=== PATIENT | male | born 1980 | race Caucasian/White ===

== ENCOUNTER 2018-11-04 12:18 | Emergency (ER) | payer SELFPAY ==
[~2018-11-04] VITALS: Ht 172.7 cm; Wt 97.7 kg
[2018-11-04] MEDS ORDERED: PAIN MED PO (12:20)
[2018-11-04 12:34] LABS: GLUCOSE,POINT OF CARE 310 MG/DL (70-110)
[2018-11-04] MEDS ORDERED: SODIUM CHLORIDE 0.9% 1,000 ML IV ONE (14:00)
[2018-11-04 16:06] VITALS: BP 123/76
[2018-11-04 16:09] LABS: GLUCOSE,POINT OF CARE 290 MG/DL (70-110)
== END 2018-11-04 16:16 | disposition home or self-care (01) ==
LOC: EMS 12:20
DX: S39.011A Strain of muscle, fascia and tendon of abdomen, initial encounter (principal); X50.9XXA Other and unspecified overexertion or strenuous movements or postures, initial encounter; Y93.89 Activity, other specified; Y92.89 Other specified places as the place of occurrence of the external cause; Y99.8 Other external cause status
CPT/HCPCS: 73503; 82962; 99283; J7030

== ENCOUNTER 2019-03-08 17:28 | Inpatient (IN) | payer MEDICAID ==
[~2019-03-08] VITALS: Ht 172.7 cm; Wt 95.0 kg
[~2019-03-08 17:28] MED LIST: PAIN MED PO
[2019-03-08] MEDS ORDERED: SODIUM CHLORIDE 0.9% 100 ML ONE (17:50)
[2019-03-08] MEDS ORDERED: IOVERSOL 350 MG/ML 100 ML VIAL ONE (17:50)
[2019-03-08 18:11] LABS: BASOPHILS % (AUTO) 1.3 % (0.0-2.0); EOSINOPHILS % (AUTO) 5.1 % (1.0-6.0); HEMATOCRIT 44.3 % (41-53); HEMOGLOBIN 15.1 g/dL (13.5-17.5); LYMPHOCYTES # (AUTO) 3.5 K/uL (1.0-4.8); MEAN CORPUSCULAR HEMOGLOBIN 29.4 pg (26.0-34.0); MEAN CORPUSCULAR HGB CONC 34.2 G/dL (31.0-37.0); MEAN CORPUSCULAR VOLUME 86 fL (80-100); MONOCYTES # (AUTO) 0.7 K/uL (0.1-1.0); NEUTROPHILS # (AUTO) 4.3 K/uL (1.8-7.7); NEUTROPHILS % (AUTO) 47.6 % (40.0-70.0); PLATELET COUNT (AUTO) 241 K/uL (150-450); RED BLOOD CELL COUNT(AUTO) 5.15 MIL/uL (4.50-5.90); RED CELL DISTRIBUTION WIDTH 13.7 % (11.5-14.5)
[2019-03-08] MEDS ORDERED: SODIUM CHLORIDE 0.9% 2,000 ML IV ONE (18:15)
[2019-03-08] MEDS ORDERED: INSULIN REGULAR, HUMAN 100 UNITS/ML IVP ONE (18:15)
[2019-03-08 18:39] LABS: ANION GAP 8 mmol/L (8-16); CALCIUM, TOTAL 8.7 mg/dL (8.8-10.5); CARBON DIOXIDE 28 mmol/L (22-29); CHLORIDE 98 mmol/L (98-107); CREATININE 0.73 mg/dL (0.60-1.30); GLOMERULAR FILTR. RATE CALC > 60 mL/min (>60); GLUCOSE,RANDOM 374 mg/dL (70-110); POTASSIUM 3.8 mmol/L (3.5-5.1); SODIUM SERUM 134 mmol/L (136-145); UREA NITROGEN, BLOOD 10 mg/dL (7-18)
[2019-03-08 18:53] LABS: ACETONE,BLOOD NEGATIVE (NEGATIVE)
[2019-03-08 19:03] LABS: ALANINE AMINOTRANSFERASE 35 U/L (12-78); ALBUMIN 3.7 g/dL (3.4-5.0); ALKALINE PHOSPHATASE 162 U/L (46-116); ASPARTATE AMINOTRANSFERASE 18 U/L (15-37); BILIRUBIN,TOTAL 0.5 mg/dL (0.1-1.0); CHOL/HDL RATIO 3.7 (4.2-7.3); CHOLESTEROL 149 mg/dL (131-200); CREATINE KINASE, TOTAL ONLY 332 U/L (39-308); HDL CHOLESTEROL 40 mg/dL (40-60); LDL CHOL (CALC.) 52 mg/dL (0-130); LIPASE 104 U/L (73-393); TRIGLYCERIDES 286 mg/dL (15-150)
[2019-03-08 19:14] LABS: GLUCOSE,POINT OF CARE 287 MG/DL (70-110)
[2019-03-08 19:39] LABS: APPEARANCE,URINE CLEAR (CLEAR); BILIRUBIN,URINE NEGATIVE (NEGATIVE); GLUCOSE, URINE (UA) >=1000 mg/dL (NEGATIVE); KETONES,URINE NEGATIVE (NEGATIVE); LEUKOCYTE ESTERASE ,URINE NEGATIVE (NEGATIVE); NITRATE,URINE NEGATIVE (NEGATIVE); OCCULT BLOOD,URINE NEGATIVE (NEGATIVE); PROTEIN,URINE NEGATIVE (NEGATIVE); UROBILINOGEN,URINE 0.2 mg/dL (<=1.0)
[2019-03-08 19:44] LABS: AMPHET/METH SCREEN,URINE NEGATIVE (NEGATIVE); BARBITURATE SCREEN, URINE NEGATIVE (NEGATIVE); BENZODIAZEPINES SCREEN,URINE NEGATIVE (NEGATIVE); CANNABINOID SCREEN,URINE NEGATIVE (NEGATIVE); COCAINE SCREEN,URINE NEGATIVE (NEGATIVE); METHADONE SCREEN, URINE NEGATIVE (NEGATIVE); OPIATE SCREEN,URINE NEGATIVE (NEGATIVE)
[2019-03-08] MEDS ORDERED: ACETAMINOPHEN 325 MG TABLET PO PRN (19:45)
[2019-03-08] MEDS ORDERED: 0.9% SODIUM CHLORIDE 10 ML SYRINGE IVP PRN (19:45)
[2019-03-08] MEDS ORDERED: ONDANSETRON HCL 4 MG/2 ML VIAL IVP PRN (19:45)
[2019-03-08 19:49] LABS: PHENCYCLIDINE SCREEN,URINE NEGATIVE (NEGATIVE)
[2019-03-08 19:58] LABS: BACTERIA,URINE Rare /HPF (None Seen); RBC,URINE 0-2 /HPF (0-2); SQUAMOUS EPITHELIAL CELL,UR Few /LPF (None Seen); WBC,URINE 0-2 /HPF (0-5)
[2019-03-09] VITALS (7 sets, daily range): BP systolic 127–141; BP diastolic 73–90
[2019-03-09] MEDS ORDERED: DEXTROSE 50%-WATER 25 GM/50 ML SYRINGE IVP PRN (07:00)
[2019-03-09] MEDS: INSULIN LISPRO 100 UNITS/ML SQ PRN ×4 (07:11→21:56)
[2019-03-09 07:55] LABS: GLUCOMETER DEV NAME(LOC) 5N.1; GLUCOSE,POINT OF CARE 255 MG/DL (70-110)
[2019-03-09] MEDS ORDERED: ACETAMINOPHEN 325 MG TABLET PO PRN ×2 (08:45→09:15)
[2019-03-09 09:11] LABS: HEMOGLOBIN A1C 10.3 % (4.5-6.2)
[2019-03-09 09:13] LABS: CHOL/HDL RATIO 3.2 (4.2-7.3)
[2019-03-09 17:45] LABS: GLUCOMETER DEV NAME(LOC) 5N.1; GLUCOSE,POINT OF CARE 197 MG/DL (70-110)
[2019-03-09] MEDS ORDERED: INSULIN GLARGINE,HUM.REC.ANLOG 100 UNITS/ML SQ SCH (21:00)
[2019-03-10 01:10] LABS: GLUCOMETER DEV NAME(LOC) 5N.1; GLUCOSE,POINT OF CARE 237 MG/DL (70-110)
[2019-03-10 01:11] LABS: GLUCOMETER DEV NAME(LOC) 5N.2; GLUCOSE,POINT OF CARE 216 MG/DL (70-110)
[2019-03-10 05:10] VITALS: BP 117/67
[2019-03-10] MEDS: INSULIN LISPRO 100 UNITS/ML SQ PRN ×4 (06:11→21:31)
[2019-03-10 06:41] LABS: GLUCOMETER DEV NAME(LOC) 5N.2; GLUCOSE,POINT OF CARE 195 MG/DL (70-110)
[2019-03-10 07:59] VITALS: BP 136/74
[2019-03-10 10:48] VITALS: BP 130/74
[2019-03-10 15:02] VITALS: BP 110/60
[2019-03-10 20:50] VITALS: BP 129/83
[2019-03-10] MEDS ORDERED: INSULIN GLARGINE,HUM.REC.ANLOG 100 UNITS/ML SQ SCH (21:00)
[2019-03-11 00:36] VITALS: BP_SYST 118; BP_DIAS 67; BP_DIAS 7
[2019-03-11 05:16] VITALS: BP 118/71
[2019-03-11] MEDS: INSULIN LISPRO 100 UNITS/ML SQ PRN (06:41)
[2019-03-11] MEDS ORDERED: HYPROMELLOSE 0.5% 15 ML OPHTHALMIC SOLUTION OU PRN (07:00)
[2019-03-11 07:10] LABS: GLUCOMETER DEV NAME(LOC) 5N.1; GLUCOSE,POINT OF CARE 229 MG/DL (70-110)
[2019-03-11 09:00] VITALS: BP 120/73
[2019-03-11 10:41] LABS: GLUCOMETER DEV NAME(LOC) 5N.2; GLUCOSE,POINT OF CARE 226 MG/DL (70-110)
[2019-03-11 10:42] LABS: GLUCOMETER DEV NAME(LOC) 5N.2; GLUCOSE,POINT OF CARE 180 MG/DL (70-110)
[2019-03-11] MEDS ORDERED: INSLAN SQ (10:48)
[2019-03-11 10:59] LABS: BASOPHILS % (AUTO) 1.1 % (0.0-2.0); EOSINOPHILS % (AUTO) 4.1 % (1.0-6.0); HEMOGLOBIN 15.7 g/dL (13.5-17.5); LYMPHOCYTES # (AUTO) 2.8 K/uL (1.0-4.8); LYMPHOCYTES % (AUTO) 35.3 % (22.0-44.0); MEAN CORPUSCULAR HEMOGLOBIN 29.3 pg (26.0-34.0); MEAN CORPUSCULAR HGB CONC 34.1 G/dL (31.0-37.0); MEAN CORPUSCULAR VOLUME 86 fL (80-100); MONOCYTES # (AUTO) 0.5 K/uL (0.1-1.0); MONOCYTES % (AUTO) 6.6 % (2.0-9.0); NEUTROPHILS # (AUTO) 4.2 K/uL (1.8-7.7); NEUTROPHILS % (AUTO) 52.9 % (40.0-70.0); PLATELET COUNT (AUTO) 234 K/uL (150-450); RED BLOOD CELL COUNT(AUTO) 5.36 MIL/uL (4.50-5.90); RED CELL DISTRIBUTION WIDTH 13.4 % (11.5-14.5)
[2019-03-11 11:01] LABS: ANION GAP 8 mmol/L (8-16); CALCIUM, TOTAL 8.6 mg/dL (8.8-10.5); CARBON DIOXIDE 26 mmol/L (22-29); CHLORIDE 105 mmol/L (98-107); CREATININE 0.67 mg/dL (0.60-1.30); GLOMERULAR FILTR. RATE CALC > 60 mL/min (>60); GLUCOSE,RANDOM 167 mg/dL (70-110); POTASSIUM 3.8 mmol/L (3.5-5.1); SODIUM SERUM 139 mmol/L (136-145); UREA NITROGEN, BLOOD 12 mg/dL (7-18)
[2019-03-11 11:07] LABS: ALANINE AMINOTRANSFERASE 28 U/L (12-78); ALBUMIN 3.4 g/dL (3.4-5.0); ALKALINE PHOSPHATASE 89 U/L (46-116); ASPARTATE AMINOTRANSFERASE 20 U/L (15-37); BILIRUBIN,TOTAL 0.6 mg/dL (0.1-1.0); TOTAL PROTEIN, SERUM 7.7 g/dL (6.4-8.2)
[2019-03-11 12:05] LABS: GLUCOMETER DEV NAME(LOC) 5S.2A; GLUCOSE,POINT OF CARE 240 MG/DL (70-110)
[2019-03-11 12:22] VITALS: BP 130/79
[2019-03-11] MEDS ORDERED: ACYC200C PO (13:03)
[2019-03-11] MEDS ORDERED: MEDROL DOSE PACK PO (13:05)
[2019-03-11] MEDS ORDERED: INSULIN SQ (13:06)
[2019-03-11] MEDS ORDERED: ACYCLOVIR 200 MG CAPSULE PO SCH (14:00)
[2019-03-11 15:02] LABS: GLUCOMETER DEV NAME(LOC) 5N.2; GLUCOSE,POINT OF CARE 138 MG/DL (70-110)
== END 2019-03-11 13:35 | disposition home or self-care (01) | DRG 48 ==
LOC: EMS 17:30 → 5S 03-09 00:24
PROVIDERS: ADMIT Hospitalist; ATTEND Hospitalist
DX: G51.0 Bell's palsy (principal); E11.65 Type 2 diabetes mellitus with hyperglycemia
CPT/HCPCS: 70544; 70551; 83036; 93005; 93306; 93880; 96361; 96374; 99291; G0480; J1815; J7050

== ENCOUNTER 2019-08-06 09:51 | Emergency (ER) | payer MEDICAID ==
[~2019-08-06] VITALS: Ht 172.7 cm; Wt 97.7 kg
[~2019-08-06 09:51] MED LIST changes: +ACYC200C PO; +INSLAN SQ; +INSULIN SQ; +MEDROL DOSE PACK PO; -PAIN MED PO
[2019-08-06] MEDS ORDERED: KETOROLAC TROMETHAMINE 30 MG/ML VIAL IM ONE (11:00)
[2019-08-06] MEDS ORDERED: ACETAMINOPHEN 500 MG TABLET PO ONE (11:00)
[2019-08-06] MEDS ORDERED: LIDOCAINE 5% TRANSDERMAL PATCH TD ONE (11:00)
[2019-08-06] MEDS ORDERED: SODIUM CHLORIDE 0.9% 1,000 ML IV ONE (11:30)
[2019-08-06] MEDS ORDERED: KETOROLAC TROMETHAMINE 30 MG/ML VIAL IVP ONE (11:45)
[2019-08-06 11:49] LABS: ABG HCO3 24.3 mmol/L (22.0-26.0); ABG OXYHEMOGLOBIN 44.9 % (94.0-100.0); ABG PCO2 55 mmHg (35-45); ABG PH 7.339 (7.350-7.450); ABG TOTAL HEMOGLOBIN 16.8 G/dL (12.0-18.0); SOURCE, BLOOD GAS VENOUS; TEMPERATURE, FAHRENHEIT, BG 98.6 FAHREN (96.0-98.6)
[2019-08-06 11:52] LABS: ABG OXYGEN SATURATION 45.4 % (95.0-98.0); PO2, ARTERIAL BG 24.3 mmHg (92.0-100.0)
[2019-08-06 11:57] LABS: ABG OXYGEN CONTENT 10.6 mL/dL (15.0-23.0)
[2019-08-06 12:37] LABS: BASOPHILS % (AUTO) 0.9 % (0.0-2.0); EOSINOPHILS % (AUTO) 3.7 % (1.0-6.0); HEMATOCRIT 48.7 % (41-53); HEMOGLOBIN 16.3 g/dL (13.5-17.5); LYMPHOCYTES # (AUTO) 2.7 K/uL (1.0-4.8); LYMPHOCYTES % (AUTO) 31.3 % (22.0-44.0); MEAN CORPUSCULAR HEMOGLOBIN 28.7 pg (26.0-34.0); MEAN CORPUSCULAR HGB CONC 33.5 G/dL (31.0-37.0); MEAN CORPUSCULAR VOLUME 86 fL (80-100); MONOCYTES # (AUTO) 0.5 K/uL (0.1-1.0); MONOCYTES % (AUTO) 5.3 % (2.0-9.0); NEUTROPHILS # (AUTO) 5.1 K/uL (1.8-7.7); NEUTROPHILS % (AUTO) 58.8 % (40.0-70.0); PLATELET COUNT (AUTO) 219 K/uL (150-450); RED BLOOD CELL COUNT(AUTO) 5.69 MIL/uL (4.50-5.90); RED CELL DISTRIBUTION WIDTH 13.5 % (11.5-14.5)
[2019-08-06 12:53] LABS: ANION GAP 12 mmol/L (8-16); CALCIUM, TOTAL 9.3 mg/dL (8.8-10.5); CARBON DIOXIDE 25 mmol/L (22-29); CHLORIDE 103 mmol/L (98-107); CREATININE 0.71 mg/dL (0.60-1.30); GLOMERULAR FILTR. RATE CALC > 60 mL/min (>60); GLUCOSE,RANDOM 248 mg/dL (70-110); POTASSIUM 3.8 mmol/L (3.5-5.1); SODIUM SERUM 140 mmol/L (136-145); UREA NITROGEN, BLOOD 14 mg/dL (7-18)
[2019-08-06 12:55] LABS: ALANINE AMINOTRANSFERASE 32 U/L (12-78); ALBUMIN 3.9 g/dL (3.4-5.0); ALKALINE PHOSPHATASE 115 U/L (46-116); ASPARTATE AMINOTRANSFERASE 17 U/L (15-37); BILIRUBIN,TOTAL 0.8 mg/dL (0.1-1.0); TOTAL PROTEIN, SERUM 8.2 g/dL (6.4-8.2)
[2019-08-06 13:51] VITALS: BP 117/82
== END 2019-08-06 14:28 | disposition home or self-care (01) ==
LOC: EMS 09:52
DX: M62.838 Other muscle spasm (principal); E11.9 Type 2 diabetes mellitus without complications
CPT/HCPCS: 36415; 80053; 81002; 82009; 82805; 82962; 85025; 96374; 99283; J1885; J7030

== ENCOUNTER 2021-10-25 09:04 | Inpatient (IN) | payer MEDICAID ==
[~2021-10-25] VITALS: Ht 172.7 cm; Wt 92.0 kg
[~2021-10-25 09:04] MED LIST changes: -ACYC200C PO; +DOCU-385 PO; -INSLAN SQ; -INSULIN SQ; -MEDROL DOSE PACK PO; +METF-1185 PO
[2021-10-25] MEDS ORDERED: SODIUM CHLORIDE 0.9% 100 ML ONE (09:43)
[2021-10-25] MEDS ORDERED: IOHEXOL 300 MG/ML 100 ML VIAL ONE (09:43)
[2021-10-25] MEDS ORDERED: MORPHINE SULFATE 4 MG/ML SYRINGE IVP ONE (09:45)
[2021-10-25] MEDS ORDERED: SODIUM CHLORIDE 0.9% 1,000 ML IV ONE (09:45)
[2021-10-25 09:57] LABS: BASOPHILS % (AUTO) 0.4 % (0.0-2.0); EOSINOPHILS % (AUTO) 0.2 % (1.0-6.0); HEMATOCRIT 40.6 % (41-53); HEMOGLOBIN 13.7 g/dL (13.5-17.5); LYMPHOCYTES # (AUTO) 2.1 K/uL (1.0-4.8); LYMPHOCYTES % (AUTO) 12.9 % (22.0-44.0); MEAN CORPUSCULAR HEMOGLOBIN 28.5 pg (26.0-34.0); MEAN CORPUSCULAR HGB CONC 33.7 G/dL (31.0-37.0); MEAN CORPUSCULAR VOLUME 85 fL (80-100); MONOCYTES % (AUTO) 6.3 % (2.0-9.0); NEUTROPHILS % (AUTO) 80.2 % (40.0-70.0); PLATELET COUNT (AUTO) 307 K/uL (150-450); RED CELL DISTRIBUTION WIDTH 13.7 % (11.5-14.5)
[2021-10-25] MEDS ORDERED: ACETAMINOPHEN 650 MG RECTAL SUPPOSITORY PR ONE (10:00)
[2021-10-25] MEDS ORDERED: KETOROLAC TROMETHAMINE 30 MG/ML VIAL IVP ONE (10:00)
[2021-10-25 10:05] LABS: ANION GAP 6 mmol/L (8-16); CALCIUM, TOTAL 8.3 mg/dL (8.8-10.5); CARBON DIOXIDE 26 mmol/L (22-29); CHLORIDE 103 mmol/L (98-107); CREATININE 0.93 mg/dL (0.60-1.30); GLOMERULAR FILTR. RATE CALC > 60 mL/min (>60); GLUCOSE,RANDOM 262 mg/dL (70-110); POTASSIUM 3.5 mmol/L (3.5-5.1); SODIUM SERUM 135 mmol/L (136-145); UREA NITROGEN, BLOOD 9 mg/dL (7-18)
[2021-10-25 10:10] LABS: ALANINE AMINOTRANSFERASE 33 U/L (12-78); ALBUMIN 2.8 g/dL (3.4-5.0); ALKALINE PHOSPHATASE 85 U/L (46-116); ASPARTATE AMINOTRANSFERASE 26 U/L (15-37); BILIRUBIN,TOTAL 0.7 mg/dL (0.1-1.0); TOTAL PROTEIN, SERUM 7.9 g/dL (6.4-8.2)
[2021-10-25 10:12] LABS: COVID AG,FIA SOURCE NASOPHARYNGEAL
[2021-10-25 10:34] LABS: INFLUENZA TYPE A NEGATIVE FOR TYPE A (NEGATIVE); INFLUENZA TYPE B NEGATIVE FOR TYPE B (NEGATIVE)
[2021-10-25] MEDS ORDERED: SODIUM CHLORIDE 0.9% 3,400 ML IV ONE (11:15)
[2021-10-25] MEDS ORDERED: PIPERACILLIN/TAZO 3.375 GM/D5W 50 ML IV ONE (11:15)
[2021-10-25 11:43] LABS: LIPASE 60 U/L (73-393)
[2021-10-25] MEDS ORDERED: ONDANSETRON HCL 4 MG/2 ML VIAL IVP PRN ×2 (11:45→12:00)
[2021-10-25] MEDS ORDERED: 0.9% SODIUM CHLORIDE 10 ML SYRINGE IVP PRN (11:45)
[2021-10-25] MEDS ORDERED: AZITHROMYCIN 500 MG/NS 250 ML IV ONE (11:45)
[2021-10-25] MEDS ORDERED: ACETAMINOPHEN 325 MG TABLET PO PRN ×2 (11:45→12:00)
[2021-10-25] MEDS ORDERED: DEXTROSE 50%-WATER 25 GM/50 ML SYRINGE IVP PRN (12:00)
[2021-10-25 12:21] LABS: APPEARANCE,URINE CLEAR (CLEAR); BILIRUBIN,URINE NEGATIVE (NEGATIVE); GLUCOSE, URINE (UA) 300-500 mg/dL (NEGATIVE); LEUKOCYTE ESTERASE ,URINE NEGATIVE (NEGATIVE); NITRATE,URINE NEGATIVE (NEGATIVE); OCCULT BLOOD,URINE NEGATIVE (NEGATIVE); PROTEIN,URINE NEGATIVE (NEGATIVE); SPECIFIC GRAVITIY, URINE 1.009 (1.003-1.030); UROBILINOGEN,URINE <=1.0 mg/dL (<=1.0)
[2021-10-25 12:39] LABS: BACTERIA,URINE None Seen /HPF (None Seen); RBC,URINE None Seen /HPF (0-2); WBC,URINE None Seen /HPF (0-5)
[2021-10-25 13:50] VITALS: BP 137/88
[2021-10-25] MEDS: MORPHINE SULFATE 2 MG/ML SYRINGE IVP PRN (14:43)
[2021-10-25] MEDS: SODIUM CHLORIDE 0.9% 1,000 ML IV SCH ×2 (14:44→23:13)
[2021-10-25 15:42] VITALS: BP 132/78
[2021-10-25] MEDS: PIPERACILLIN/TAZO 3.375 GM/D5W 50 ML IV SCH ×2 (18:11→23:13)
[2021-10-25 20:06] VITALS: BP 155/89
[2021-10-25 20:17] LABS: GLUCOMETER DEV NAME(LOC) 5N.1C; GLUCOSE,POINT OF CARE 164 MG/DL (70-110)
[2021-10-25] MEDS: DOCUSATE SODIUM 100 MG CAPSULE PO SCH (20:24)
[2021-10-26] VITALS (7 sets, daily range): BP systolic 135–150; BP diastolic 64–99
[2021-10-26] MEDS: PIPERACILLIN/TAZO 3.375 GM/D5W 50 ML IV SCH ×4 (05:57→23:07)
[2021-10-26 06:38] LABS: BASOPHILS % (AUTO) 0.4 % (0.0-2.0); EOSINOPHILS % (AUTO) 0.6 % (1.0-6.0); HEMATOCRIT 36.3 % (41-53); HEMOGLOBIN 12.3 g/dL (13.5-17.5); LYMPHOCYTES # (AUTO) 1.8 K/uL (1.0-4.8); LYMPHOCYTES % (AUTO) 14.2 % (22.0-44.0); MEAN CORPUSCULAR HEMOGLOBIN 28.6 pg (26.0-34.0); MEAN CORPUSCULAR HGB CONC 33.9 G/dL (31.0-37.0); MEAN CORPUSCULAR VOLUME 84 fL (80-100); MONOCYTES % (AUTO) 8.2 % (2.0-9.0); NEUTROPHILS # (AUTO) 9.7 K/uL (1.8-7.7); NEUTROPHILS % (AUTO) 76.6 % (40.0-70.0); PLATELET COUNT (AUTO) 317 K/uL (150-450); RED CELL DISTRIBUTION WIDTH 13.4 % (11.5-14.5)
[2021-10-26 06:48] LABS: ALANINE AMINOTRANSFERASE 26 U/L (12-78); ALBUMIN 2.3 g/dL (3.4-5.0); ALKALINE PHOSPHATASE 69 U/L (46-116); ANION GAP 11 mmol/L (8-16); ASPARTATE AMINOTRANSFERASE 19 U/L (15-37); BILIRUBIN,TOTAL 0.7 mg/dL (0.1-1.0); CARBON DIOXIDE 23 mmol/L (22-29); CHLORIDE 104 mmol/L (98-107); CREATININE 0.68 mg/dL (0.60-1.30); GLUCOSE,RANDOM 187 mg/dL (70-110); POTASSIUM 3.4 mmol/L (3.5-5.1); SODIUM SERUM 138 mmol/L (136-145); TOTAL PROTEIN, SERUM 6.9 g/dL (6.4-8.2); UREA NITROGEN, BLOOD 6 mg/dL (7-18)
[2021-10-26 06:49] LABS: GLOMERULAR FILTR. RATE CALC > 60 mL/min (>60)
[2021-10-26] MEDS: DOCUSATE SODIUM 100 MG CAPSULE PO SCH ×2 (08:30→21:14)
[2021-10-26] MEDS: PANTOPRAZOLE SODIUM 40 MG/VIAL IVP SCH (08:34)
[2021-10-26] MEDS: SODIUM CHLORIDE 0.9% 1,000 ML IV SCH ×2 (08:35→21:15)
[2021-10-26] MEDS ORDERED: POTASSIUM CHLORIDE 20 MEQ ER TABLET PO PRN (10:45)
[2021-10-26] MEDS: POTASSIUM CHL 10 MEQ/WATER 50 ML IV PRN ×3 (18:44→23:09)
[2021-10-26] MEDS: MORPHINE SULFATE 2 MG/ML SYRINGE IVP PRN (21:25)
[2021-10-27] MEDS: MORPHINE SULFATE 2 MG/ML SYRINGE IVP PRN (01:27)
[2021-10-27 01:32] LABS: GLUCOMETER DEV NAME(LOC) 5N.3; GLUCOSE,POINT OF CARE 146 MG/DL (70-110)
[2021-10-27 01:32] LABS: GLUCOMETER DEV NAME(LOC) 5N.3; GLUCOSE,POINT OF CARE 159 MG/DL (70-110)
[2021-10-27 02:40] LABS: EOSINOPHILS % (AUTO) 4.3 % (1.0-6.0); HEMOGLOBIN 12.5 g/dL (13.5-17.5); LYMPHOCYTES # (AUTO) 1.6 K/uL (1.0-4.8); LYMPHOCYTES % (AUTO) 14.9 % (22.0-44.0); MEAN CORPUSCULAR HEMOGLOBIN 28.5 pg (26.0-34.0); MEAN CORPUSCULAR HGB CONC 33.7 G/dL (31.0-37.0); MEAN CORPUSCULAR VOLUME 84 fL (80-100); MONOCYTES % (AUTO) 9.1 % (2.0-9.0); NEUTROPHILS # (AUTO) 7.8 K/uL (1.8-7.7); NEUTROPHILS % (AUTO) 70.7 % (40.0-70.0); PLATELET COUNT (AUTO) 332 K/uL (150-450); RED BLOOD CELL COUNT(AUTO) 4.39 MIL/uL (4.50-5.90); RED CELL DISTRIBUTION WIDTH 13.4 % (11.5-14.5)
[2021-10-27 04:55] VITALS: BP 153/98
[2021-10-27] MEDS: PIPERACILLIN/TAZO 3.375 GM/D5W 50 ML IV SCH ×4 (05:01→23:46)
[2021-10-27 07:30] VITALS: BP 145/88
[2021-10-27] MEDS: PANTOPRAZOLE SODIUM 40 MG/VIAL IVP SCH (08:51)
[2021-10-27] MEDS: DOCUSATE SODIUM 100 MG CAPSULE PO SCH ×2 (08:51→21:00)
[2021-10-27 12:00] VITALS: BP 150/98
[2021-10-27] MEDS: INSULIN LISPRO 100 UNITS/ML SQ PRN ×3 (12:03→20:53)
[2021-10-27 15:28] VITALS: BP 146/78
[2021-10-27 18:46] LABS: GLUCOMETER DEV NAME(LOC) 5N.1C; GLUCOSE,POINT OF CARE 142 MG/DL (70-110)
[2021-10-27 18:46] LABS: GLUCOMETER DEV NAME(LOC) 5N.1C; GLUCOSE,POINT OF CARE 194 MG/DL (70-110)
[2021-10-27 19:53] VITALS: BP 136/95
[2021-10-27 21:02] LABS: GLUCOMETER DEV NAME(LOC) 5N.3; GLUCOSE,POINT OF CARE 202 MG/DL (70-110)
[2021-10-27] MEDS ORDERED: LOPERAMIDE HCL 2 MG CAPSULE PO ONE (23:30)
[2021-10-27] MEDS ORDERED: LOPERAMIDE HCL 2 MG CAPSULE PO PRN (23:30)
[2021-10-28 04:43] VITALS: BP 135/89
[2021-10-28 06:11] LABS: GLUCOMETER DEV NAME(LOC) 5N.3; GLUCOSE,POINT OF CARE 170 MG/DL (70-110)
[2021-10-28 06:24] LABS: BASOPHILS % (AUTO) 0.7 % (0.0-2.0); EOSINOPHILS % (AUTO) 4.5 % (1.0-6.0); HEMATOCRIT 38.6 % (41-53); HEMOGLOBIN 13.4 g/dL (13.5-17.5); LYMPHOCYTES # (AUTO) 2.2 K/uL (1.0-4.8); LYMPHOCYTES % (AUTO) 18.9 % (22.0-44.0); MEAN CORPUSCULAR HEMOGLOBIN 28.8 pg (26.0-34.0); MEAN CORPUSCULAR HGB CONC 34.6 G/dL (31.0-37.0); MEAN CORPUSCULAR VOLUME 83 fL (80-100); MONOCYTES # (AUTO) 1.1 K/uL (0.1-1.0); MONOCYTES % (AUTO) 9.2 % (2.0-9.0); NEUTROPHILS # (AUTO) 7.7 K/uL (1.8-7.7); NEUTROPHILS % (AUTO) 66.7 % (40.0-70.0); PLATELET COUNT (AUTO) 411 K/uL (150-450); RED BLOOD CELL COUNT(AUTO) 4.64 MIL/uL (4.50-5.90); RED CELL DISTRIBUTION WIDTH 13.5 % (11.5-14.5)
[2021-10-28] MEDS: PIPERACILLIN/TAZO 3.375 GM/D5W 50 ML IV SCH (06:28)
[2021-10-28 07:18] VITALS: BP 130/90
[2021-10-28] MEDS ORDERED: AMOX1TAB15 PO (08:08)
[2021-10-28 08:15] VITALS: BP 124/83
[2021-10-28] MEDS: DOCUSATE SODIUM 100 MG CAPSULE PO SCH (09:24)
[2021-10-28] MEDS: PANTOPRAZOLE SODIUM 40 MG/VIAL IVP SCH (09:24)
== END 2021-10-28 11:40 | disposition home or self-care (01) | DRG 721 ==
LOC: EMS 09:04 → 5N 12:18 → 6S 10-28 07:51
PROVIDERS: ADMIT Internal Medicine; ATTEND Internal Medicine
DX: T81.49XA Infection following a procedure, other surgical site, initial encounter (principal); U07.1 COVID-19; A41.9 Sepsis, unspecified organism; K50.00 Crohn's disease of small intestine without complications; E11.65 Type 2 diabetes mellitus with hyperglycemia; Z90.49 Acquired absence of other specified parts of digestive tract; Z79.899 Other long term (current) drug therapy; E87.6 Hypokalemia
CPT/HCPCS: 71045; 74018; 74177; 76705; 80053; 81001; 82962; 83605; 83690; 84132; 85025; 87040; 87081; 87804; 99291; C9113; J0456; J1885; J2270; J2405; J2543; J3480; J7030; J7050; Q9967; 36415-L1; 36415-TC; U0003

== ENCOUNTER 2022-10-21 21:05 | Emergency (ER) | payer MEDICAID ==
[~2022-10-21] VITALS: Ht 180.3 cm; Wt 90.9 kg
[~2022-10-21 21:05] MED LIST changes: +AMOX1TAB15 PO
[2022-10-21 21:15] VITALS: TEMP 98.5
[2022-10-21 22:33] LABS: BASOPHILS % (AUTO) 1.2 % (0.0-2.0); EOSINOPHILS % (AUTO) 5.6 % (1.0-6.0); HEMATOCRIT 42.4 % (41-53); HEMOGLOBIN 14.7 g/dL (13.5-17.5); LYMPHOCYTES # (AUTO) 3.3 K/uL (1.0-4.8); MEAN CORPUSCULAR HEMOGLOBIN 29.9 pg (26.0-34.0); MEAN CORPUSCULAR HGB CONC 34.8 G/dL (31.0-37.0); MEAN CORPUSCULAR VOLUME 86 fL (80-100); MONOCYTES # (AUTO) 0.6 K/uL (0.1-1.0); MONOCYTES % (AUTO) 6.6 % (2.0-9.0); NEUTROPHILS # (AUTO) 4.6 K/uL (1.8-7.7); NEUTROPHILS % (AUTO) 50.6 % (40.0-70.0); PLATELET COUNT (AUTO) 233 K/uL (150-450); RED BLOOD CELL COUNT(AUTO) 4.94 MIL/uL (4.50-5.90)
[2022-10-21 22:36] LABS: ANION GAP 11 mmol/L (8-16); CALCIUM, TOTAL 8.7 mg/dL (8.8-10.5); CARBON DIOXIDE 26 mmol/L (22-29); CHLORIDE 98 mmol/L (98-107); CREATININE 0.81 mg/dL (0.60-1.30); GLOMERULAR FILTR. RATE CALC > 60 mL/min (>60); GLUCOSE,RANDOM 374 mg/dL (70-110); SODIUM SERUM 135 mmol/L (136-145)
[2022-10-21 22:42] LABS: ALANINE AMINOTRANSFERASE 45 U/L (12-78); ALBUMIN 3.6 g/dL (3.4-5.0); ALKALINE PHOSPHATASE 165 U/L (46-116); ASPARTATE AMINOTRANSFERASE 25 U/L (15-37); BILIRUBIN,TOTAL 0.5 mg/dL (0.1-1.0); TOTAL PROTEIN, SERUM 7.8 g/dL (6.4-8.2)
[2022-10-21 22:42] LABS: GLUCOMETER DEV NAME(LOC) ER.6; GLUCOSE,POINT OF CARE 377 MG/DL (70-110)
[2022-10-21] MEDS ORDERED: INSULIN REGULAR, HUMAN 100 UNITS/ML IVP ONE (22:45)
[2022-10-21 23:20] LABS: AMPHET/METH SCREEN,URINE NEGATIVE (NEGATIVE); BARBITURATE SCREEN, URINE NEGATIVE (NEGATIVE); BENZODIAZEPINES SCREEN,URINE NEGATIVE (NEGATIVE); CANNABINOID SCREEN,URINE NEGATIVE (NEGATIVE); COCAINE SCREEN,URINE NEGATIVE (NEGATIVE); METHADONE SCREEN, URINE NEGATIVE (NEGATIVE); OPIATE SCREEN,URINE NEGATIVE (NEGATIVE); PHENCYCLIDINE SCREEN,URINE NEGATIVE (NEGATIVE)
[2022-10-22 00:29] VITALS: BP 118/68; PULSE 79; RESP 18
[2022-10-22] MEDS ORDERED: METF-1211 PO (00:36)
[2022-10-22] MEDS ORDERED: VALA500T42 PO (00:36)
[2022-10-22 00:42] LABS: GLUCOMETER DEV NAME(LOC) ER.6; GLUCOSE,POINT OF CARE 140 MG/DL (70-110)
== END 2022-10-22 00:46 | disposition home or self-care (01) ==
LOC: EMS 21:07
DX: G51.0 Bell's palsy (principal); E11.65 Type 2 diabetes mellitus with hyperglycemia; R53.1 Weakness; Z90.49 Acquired absence of other specified parts of digestive tract
CPT/HCPCS: 99285; 96374; 70450; 71045; 80053; 82962; 84484; 85025; 36415; 93005; 80307 ×2; J1815